=== PATIENT | male | born 1995 | race Caucasian/White ===

== ENCOUNTER 2022-04-30 12:06 | Emergency (ER) | payer SELFPAY ==
[~2022-04-30] VITALS: Ht 170 cm; Wt 65.0 kg
[~2022-04-30 12:06] MED LIST: CEPH500C PO
[2022-04-30 12:21] VITALS: BP 112/66
--- NOTE | 2022-04-30 13:06 | ED EENT ---
History of Present Illness General Chief Complaint: Dental Problems/Pain Stated Complaint: TOOTH DRAINING BLOOD Nursing Triage Note: STATES HE SEEN A DENTIST LAST WEEK AND WAS GIVEN A ZPACK AND PAIN MEDS FOR HIS FRONT TOOTH BUT TODAY IT STARTED DRAINING. History of Present Illness Date Seen by Provider: Apr 30, 2022 Time Seen by Provider: 12:30 Initial Comments Patient is a 27-year-old male who presents to the emergency department for drainage from one of his front upper teeth that began earlier today. Patient was seen at a dentist yesterday and given a prescription for azithromycin and analgesia for the tooth issue. Patient has significant decay and multiple teeth. He states he has yet to start the antibiotic but when he noticed that there was some blood and pus draining from the affected tooth today he presented here for further evaluation. He has not had a fever. States he has had some upper gum swelling but denies any facial swelling. Has been able to eat and d rink. Denies any difficulty swallowing. Allergies and Home Medications Allergies Coded Allergies: Penicillins (Verified Allergy, Unknown, 04/30/22) Patient Home Medication List Home Medication List Reviewed: Yes Discontinued Medications Cephalexin Monohydrate (Cephalexin) 500 Mg Capsule, 1 EACH PO QID Discontinued Reason: No Longer Taking Prescribed by: NIOC LUGO on 01/23/121940 Last Action: Discontinued Review of Systems Review of Systems Constitutional: no symptoms reported Eyes: No Symptoms Reported Ears: No Symptoms Reported Nose: no symptoms reported Mouth: see HPI, bloody discharge, purulent discharge Throat: no symptoms reported Respiratory: no symptoms reported Cardiovascular: no symptoms reported Gastrointestinal: no symptoms reported Musculoskeletal: no symptoms reported Skin: no symptoms reported Neurological: No Symptoms Reported Hematologic/Lymphatic: No Symptoms Reported Past Qtielnq-Wflbhf-Ntriev Hx Patient Social History Tobacco Use?: No Use of E-Cig and/or Vaping dev: Yes Substance use?: Yes Substance type: Marijuana Alcohol Use?: Yes Alcohol Frequency: Couple times a week Physical Exam Vital Signs Vital Signs - First Documented 04/30/22 12:21 Temp 37.0 Pulse 65 Resp 16 B/P (MAP) 112/66 (81) Pulse Ox 98 O2 Delivery Room Air Height, Weight, BMI Height: '" Weight: lbs. oz. kg; 22.00 BMI Method:Stated General Appearance: WD/WN, no apparent distress Neck: non-tender, full range of motion, supple, normal inspection Cardiovascular: regular rate, rhythm Respiratory: chest non-tender, lungs clear, normal breath sounds, no respiratory distress, no accessory muscle use Gastrointestinal: normal bowel sounds, non tender, soft, no organomegaly, no pulsatile mass Neurologic/Psychiatric: no motor/sensory deficits, alert, normal mood/affect, oriented x 3 Skin: normal color, warm/dry Progress/Results/Core Measures Results/Orders Vital Signs/I&O 04/30/22 12:21 Temp 37.0 Pulse 65 Resp 16 B/P (MAP) 112/66 (81) Pulse Ox 98 O2 Delivery Room Air Blood Pressure Mean: 81 Progress Progress Note : Progress Note Patient is nontoxic and well-hydrated on exam. Significant decay noted to the upper and lower incisors. No obvious abscess noted to the upper gums. No obvious drainage noted at the time of my exam. Patient has no trismus or decreased range of motion of the neck. No indication for further diagnostic testing at this time. Discussed importance of using the antibiotic as prescribed. Follow-up with dentist for further evaluation and treatment. Patient verbalized understanding. Departure Impression Primary Impression: Dental abscess Disposition: 01 HOME, SELF-CARE Condition: Stable Departure-Patient Inst. Decision time for Depature: 13:00 Referrals: NO,LOCAL PHYSICIAN (PCP/Family) Primary Care Physician Patient Instructions: Tooth Abscess ED Add. Discharge Instructions: Start the azithromycin as prescribed by your dentist and use as indicated. Fol low-up with your dentist closely for further evaluation and treatment. All discharge instructions reviewed with patient and/or family. Voiced understanding. ISIDORO ACOSTA APRN Apr 30, 2022 13:06
== END 2022-04-30 13:25 | disposition home or self-care (01) ==
LOC: EDUNIT# 12:06 → ER 12:09
DX: K04.7 Periapical abscess without sinus (principal); F17.290 Nicotine dependence, other tobacco product, uncomplicated; Z28.310 Unvaccinated for COVID-19
CPT/HCPCS: 99281